=== PATIENT | female | born 1945 | race Caucasian/White ===

== ENCOUNTER 2017-07-13 15:41 | Emergency (ER) | payer MEDICARE, BC ==
[2017-07-13 16:54] LABS: Hematocrit 41 % (35-47); Mean Corpuscular HGB Conc 34 g/dl (31-36); Mean Corpuscular Hemoglobin 31 pg (27-31); Mean Corpuscular Volume 90 fL (80-97); Mean Platelet Volume 9 um3 (7.4-10.4); Red Blood Count 4.58 10^6/ul (4.0-5.4); Red Cell Distribution Width 14 % (10.5-15)
[2017-07-13 17:12] LABS: Albumin 4.2 g/dL (3.2-5.2); BUN/Creatinine Ratio 34.5 (8-20); Calcium 9.5 mg/dL (8.6-10.3); EGFR African American 86.2 (>60); Globulin 3.4 g/dL (2-4); Potassium 3.9 mmol/L (3.5-5.0); Total Bilirubin 0.3 mg/dL (0.2-1.0); Total Protein 7.6 g/dL (6.4-8.9)
--- NOTE | 2017-07-13 17:43 | ED ---
Complex/Multi-Sys Presentation - HPI Summary HPI Summary: Patient presents to the ED with multiple complaints. She initiates the conversation with comments of how she needs to move out of her apartment complex and she has not been sleeping well d/t her loud neighbors. She then discusses intermittent feeling of tingling sensation in her bilateral arms and legs which began several weeks ago without known injury. She lifted a large box recently, but denied any back pain at that time. She endorses some neck pain, but contributes this to not sleeping well and carrying extra weight. She states she is 130lbs overweight and is requesting pain management through the hospital system. She believes she may have diabetes and is currently trying to get ahold of her Dr (Dr. Langston) to evaluate for this and her high cholesterol. She has high BP on arrival and is requesting a medication change from her generic propanolol to the name brand medication. Patient denies chest pain, SOB , weakness, abdominal pain, urinary symptoms, or visual changes. She states since she has been carrying extra weight she has felt fatigued more easily. VS stable except for elevated BP on arrival at 204/90. - History Of Current Complaint Chief Complaint: EDNeckComplaint Time Seen by Provider: 07/13/17 15:56 Hx Obtained From: Patient Onset/Duration: Sudden Onset Timing: Constant Severity Currently: Mild Severity Initially: Mild Associated Signs And Symptoms: Negative: Decreased Responsiveness, Confusion, Agitation - Allergies/Home Medications Allergies/Adverse Reactions: Allergies Allergy/AdvReac Type Severity Reaction Status Date / Time Celecoxib [From Celebrex] Allergy Unknown Verified 01/23/16 14:23 Reaction Details Cephalexin [From Keflex] Allergy Unknown Verified 01/23/16 14:23 Reaction Details Cimetidine [From Tagamet HB] Allergy Rash Verified 01/23/16 14:23 Erythromycin Allergy VERY SICK Verified 01/23/16 14:23 TO STOMACH Trazodone Allergy Unknown Verified 01/23/16 14:23 Reaction Details Ciprofloxacin AdvReac Joint Pain Verified 01/23/16 14:23 PMH/Surg Hx/FS Hx/Imm Hx Previously Healthy: Yes Endocrine/Hematology History: Denies: Hx Anticoagulant Therapy Cardiovascular History: Reports: Hx Hypertension Denies: Hx Pacemaker/ICD Musculoskeletal History: Denies: Hx Osteoporosis Sensory History: Denies: Hx Hearing Aid Psychiatric History: Denies: Hx Panic Disorder, Hx of Violent Episodes Against Others - Cancer History Cancer Type, Location and Year: 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 FACIAL-NEAR NOSE; CATARACT; CARDIAC CATH W/O STENTS - Immunization History Date of Tetanus Vaccine: Unk Date of Influenza Vaccine: 2011; avoids due to getting flu-like symptoms after vaccination Hx Pertussis Vaccination: No Immunizations Up to Date: Unable to Obtain/Confirm Infectious Disease History: No Infectious Disease History: Denies: Traveled Outside the [place] in Last 30 Days - Family History Known Family History: Positive: None - Social History Occupation: Unemployed Alcohol Use: None Substance Use Type: Reports: None Smoking Status (MU): Never Smoked Tobacco Review of Systems Positive: Fatigue. Negative: Fever, Chills Negative: Photophobia, Blurred Vision ENT: Negative Cardiovascular: Negative Negative: Chest Pain Respiratory: Negative Negative: Shortness Of Breath, Cough Negative: Abdominal Pain, Diarrhea, Nausea Positive: no symptoms reported, see HPI Positive: Arthralgia - neck tenderness after lifting heavy object Neurological: Negative Negative: Weakness, Paresthesia Psychological: Normal All Other Systems Reviewed And Are Negative: Yes Physical Exam Triage Information Reviewed: Yes Vital Signs On Initial Exam: Initial Vitals Temp Pulse Resp BP Pulse Ox 98.2 F 98 18 204/90 97 07/13/17 15:48 07/13/17 15:48 07/13/17 15:48 07/13/17 15:48 07/13/17 15:48 Vital Signs Reviewed: Yes Appearance: Positive: Well-Appearing, Well-Nourished Skin: Positive: Warm, Skin Color Reflects Adequate Perfusion Head/Face: Positive: Normal Head/Face Inspection Eyes: Positive: EOMI, NANCY, Conjunctiva Clear Neck: Positive: Supple, No Lymphadenopathy Respiratory/Lung Sounds: Positive: Clear to Auscultation, Breath Sounds Present Cardiovascular: Positive: Normal, RRR, Pulses are Symmetrical in both Upper and Lower Extremities Musculoskeletal: Positive: Strength/ROM Intact Neurological: Positive: Speech Normal Psychiatric: Positive: Normal - Alexis Coma Scale Coma Scale Total: 15 Diagnostics - Vital Signs Vital Signs Temp Pulse Resp BP Pulse Ox 07/13/17 15:48 98.2 F 98 18 204/90 97 - Laboratory Lab Results: Lab Results 07/13/17 07/13/17 Range/Units 16:40 16:40 WBC 11.0 H (3.5-10.8) 10^3/ul RBC 4.58 (4.0-5.4) 10^6/ul Hgb 14.0 (12.0-16.0) g/dl Hct 41 (35-47) % MCV 90 (80-97) fL MCH 31 (27-31) pg MCHC 34 (31-36) g/dl RDW 14 (10.5-15) % Plt Count 226 (150-450) 10^3/ul MPV 9 (7.4-10.4) um3 Neut % (Auto) 59.9 (38-83) % Lymph % (Auto) 29.4 (25-47) % Putnam % (Auto) 8.6 (1-9) % Eos % (Auto) 1.3 (0-6) % Baso % (Auto) 0.8 (0-2) % Absolute Neuts (auto) 6.6 (1.5-7.7) 10^3/ul Absolute Lymphs (auto) 3.2 (1.0-4.8) 10^3/ul Absolute Monos (auto) 0.9 H (0-0.8) 10^3/ul Absolute Eos (auto) 0.1 (0-0.6) 10^3/ul Absolute Basos (auto) 0.1 (0-0.2) 10^3/ul Absolute Nucleated RBC 0 10^3/ul Nucleated RBC % 0 Sodium 135 (133-145) mmol/L Potassium 3.9 (3.5-5.0) mmol/L Chloride 104 (101-111) mmol/L Carbon Dioxide 25 (22-32) mmol/L Anion Gap 6 (2-11) mmol/L BUN 29 H (6-24) mg/dL Creatinine 0.84 (0.51-0.95) mg/dL Est GFR ( Amer) 86.2 (>60) Est GFR (Non-Af Amer) 67.0 (>60) BUN/Creatinine Ratio 34.5 H (8-20) Glucose 132 H (70-100) mg/dL Calcium 9.5 (8.6-10.3) mg/dL Total Bilirubin 0.30 (0.2-1.0) mg/dL AST 21 (13-39) U/L ALT 28 (7-52) U/L Alkaline Phosphatase 86 (34-104) U/L Total Creatine Kinase 87 (10-223) U/L Total Protein 7.6 (6.4-8.9) g/dL Albumin 4.2 (3.2-5.2) g/dL Globulin 3.4 (2-4) g/dL Albumin/Globulin Ratio 1.2 (1-3) Result Diagrams: 07/13/17 16:40 07/13/17 16:40 Lab Statement: Any lab studies that have been ordered have been reviewed, and results considered in the medical decision making process. Complex Multi-Symp Course/Dx Course Of Treatment: Discussed at [facility] the issues for which she comes to the ED for. She is encouraged to follow up with PCP as these issues should all be dealt with on an outpatient basis. She is encouraged to follow up for possible BP medications and diabetes check up. Nothing noted on blood work at this time. She is given information for weight loss program through [facility] as requested. On discharge, her BP is at 180/70 and there is no evidence of organ damage, so will defer at this time for adding of medications. Patient is made aware and she is OK with plan to follow up with Dr. Langston. - Diagnoses Differential Diagnoses/HQI/PQRI: Metabolic Abnormality, Other - insomnia, HTN Provider Diagnoses: Fatigue Discharge - Discharge Plan Condition: Stable Disposition: HOME Patient Education Materials: Chronic Hypertension (ED), Weight Management (ED) Referrals: Ant Langston MD [Primary Care Provider] - Additional Instructions: Follow up with Dr. Langston as discussed for hypertension Try relaxation techniques and speak with your rd manager. Try to rest and recover from your episodes of not sleeping well
[2017-07-13 17:47] VITALS: BP 180/60
== END 2017-07-13 18:21 | disposition home or self-care (01) ==
LOC: ED 15:41
DX: R53.83 Other fatigue (principal); M25.50 Pain in unspecified joint
CPT/HCPCS: 36415; 80053; 82550; 85025; 99282

== ENCOUNTER 2018-03-15 17:56 | Emergency (ER) | payer MEDICARE, BC ==
[2018-03-15] MEDS ORDERED: Amoxicillin PO (*) 500 MG CAP PO ONE (19:43)
[2018-03-15 20:04] VITALS: BP 189/97
--- NOTE | 2018-03-21 00:12 | ED ---
Yimi Laguna Jennifer, scribed for Landon Seals MD on 03/15/18 at 1851 . Complex/Multi-Sys Presentation - HPI Summary HPI Summary: The patient is a 73 year old female who presents with an infected tooth for about six years. The patient states she could not afford dental work and it has been giving her problems on and off. Patient additionally complains of infection and itchiness in left leg, right leg pain, and difficult vision. - History Of Current Complaint Chief Complaint: EDGeneral Hx Obtained From: Patient Onset/Duration: Still Present, Worse Since - this week when she caught a cold, Other - On and off for six years but never got it checked out because she can't afford dental care. Timing: Intermittent, Lasting: Severity Currently: Mild Severity Initially: Mild Location: Pain At: - dental pain Associated Signs And Symptoms: Positive: Other - infected tooth, infection and itchiness in left leg, right leg pain, difficult vision - Allergies/Home Medications Allergies/Adverse Reactions: Allergies Allergy/AdvReac Type Severity Reaction Status Date / Time cimetidine Allergy Unknown Verified 03/15/18 18:04 Reaction Details ciprofloxacin Allergy Joint Pain Verified 03/15/18 18:04 erythromycin base Allergy Rash Verified 03/15/18 18:04 trazodone Allergy Unknown Verified 03/15/18 18:04 Reaction Details MS Ciprofloxacin AdvReac Joint Pain Verified 01/23/16 14:23 [Ciprofloxacin] PMH/Surg Hx/FS Hx/Imm Hx Endocrine/Hematology History: Reports: Hx Diabetes - pre-diabetic Denies: Hx Anticoagulant Therapy Cardiovascular History: Reports: Hx Hypertension Denies: Hx Pacemaker/ICD Musculoskeletal History: Denies: Hx Osteoporosis Sensory History: Denies: Hx Hearing Aid Psychiatric History: Denies: Hx Panic Disorder, Hx of Violent Episodes Against Others - Cancer History Cancer Type, Location and Year: 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 FACIAL-NEAR NOSE; CATARACT; CARDIAC CATH W/O STENTS - Immunization History Date of Tetanus Vaccine: Unk Date of Influenza Vaccine: 2011; avoids due to getting flu-like symptoms after vaccination Infectious Disease History: No Infectious Disease History: Denies: Traveled Outside the [place] in Last 30 Days - Family History Known Family History: Positive: Cardiac Disease Negative: Diabetes - Social History Alcohol Use: None Substance Use Type: Reports: None Smoking Status (MU): Never Smoked Tobacco Review of Systems Eyes: Other - DIfficult vision Positive: Dental Pain Positive: Other - infection and itchiness in left leg, right leg pain All Other Systems Reviewed And Are Negative: Yes Physical Exam - Summary Physical Exam Summary: Appearance: Well-appearing, Well-nourished Skin: Warm Eyes: Normal ENT: Poor dentition, dental caries in the right upper molar, no obvious abscess. Neck: Supple, nontender Respiratory: Clear to auscultation Cardiovascular: Normal S1, S2. No murmurs. Normal distal pulses in tibial and radial bilaterally. Abdomen: Soft, nontender Musculoskeletal: Normal, Strength/ROM Intact Neurological: Normal, A&Ox3 Psychiatric: Normal General: No acute distress Triage Information Reviewed: Yes Vital Signs On Initial Exam: Initial Vitals Temp Pulse Resp BP Pulse Ox 97.6 F 78 20 185/82 97 03/15/18 18:04 03/15/18 18:04 03/15/18 18:04 03/15/18 18:04 03/15/18 18:04 Vital Signs Reviewed: Yes Diagnostics - Vital Signs Vital Signs Temp Pulse Resp BP Pulse Ox 03/15/18 18:04 97.6 F 78 20 185/82 97 - Laboratory Lab Statement: Any lab studies that have been ordered have been reviewed, and results considered in the medical decision making process. Complex Multi-Symp Course/Dx - Diagnoses Provider Diagnoses: Dental caries Discharge - Sign-Out/Discharge Documenting (check all that apply): Discharge/Admit/Transfer - Discharge Plan Condition: Improved Disposition: HOME Prescriptions: Amoxicillin PO (*) [Amoxicillin 500 MG CAP*] 500 mg PO BID #20 cap Patient Education Materials: Toothache (ED) Referrals: Ant Langston MD [Primary Care Provider] - Additional Instructions: PLEASE FINISH MEDICATIONS DIRECTED PLEASE MAKE AN APPOINTMENT FIRST THING IN THE MORNING TO BE SEEN BY YOUR DENTIST SOON POSSIBLE PLEASE RETURN TO THE EMERGENCY ROOM IF YOU HAVE ANY WORSENING OR CONCERNING SYMPTOMS PLEASE MAKE AN APPOINTMENT FIRST THING IN THE MORNING TO BE SEEN BY YOUR PRIMARY CARE DOCTOR WITHIN 1 WEEK - Billing Disposition and Condition Condition: IMPROVED Disposition: HOME The documentation as recorded by the Yimi astorga Jennifer accurately reflects the service I personally performed and the decisions made by me, Landon Seals MD.
== END 2018-03-15 19:50 | disposition home or self-care (01) ==
LOC: ED 17:56
DX: K02.9 Dental caries, unspecified (principal); Z88.3 Allergy status to other anti-infective agents; Z88.8 Allergy status to other drugs, medicaments and biological substances
CPT/HCPCS: 99282; A9270-GY

== ENCOUNTER 2018-12-14 11:43 | Emergency (ER) | payer MEDICARE, BC ==
[2018-12-14] MEDS ORDERED: NS 0.9% 1000 ML** 1,000 ML IV ONE (12:02)
--- NOTE | 2018-12-14 12:10 | ED ---
GI/ HPI - HPI Summary HPI Summary: 73 year old F brought in by ambulance to [facility] with a chief complaint of bloody stools since 09:00 today. The patient rates the pain 0/10 in severity. Symptoms aggravated by nothing. Symptoms alleviated by nothing. Patient reports lightheadedness. She additionally complains of abdominal pain that waxes and wanes, rated 2/10. Patient notes "acid reflux" a few days ago. Patient denies fever, chest pain, nausea, vomiting. Patient was seen by her OBGYN 2 weeks ago for yeast infection. She was given antibiotic cream. Since then, patient still has irritation around clitoris. She was going to make an appointment tomorrow but noticed 5-cm blood clot in bowel movement this morning. Patient has hx erosive esophagitis dx upper endoscopy, Dr. Eli in 2012. Pt is not currently on PPI or H-2 jude. Patient's abdominal surgeries include appendectomy, total hysterectomy. She thinks she had a colonoscopy but can't remember when. Colonoscopy encounter not in [facility]. Patient does not have Fhx colon CA. Vital signs while in room: HR 77 bpm, BP 220/111. Home Medications Medication Instructions Recorded Confirmed Type Aspirin [Adult Aspirin] 81 mg PO DAILY 12/14/18 12/14/18 History Betamethasone Karey 0.1% CM(NF) 1 applic TOPICAL DAILY 12/14/18 12/14/18 History [Valisone 0.1% CM(NF)] Biotin 5,000 mcg PO BID 12/14/18 12/14/18 History Calcium Carbonate/Vitamin D3 1 cap PO DAILY 12/14/18 12/14/18 History [Calcium/Vitamin D] Estradiol VAGINAL TAB(NF) [Vagifem] 10 mcg VAGINAL SEE INSTRUCTIONS 12/14/18 History Ferrous Sulfate [Iron High-Potency] 325 mg PO EVERY OTHER DAY 12/14/18 12/14/18 History Flaxseed 340 gm PO DAILY 12/14/18 12/14/18 History Labetalol HCl 100 mg PO DAILY 12/14/18 12/14/18 History Lidocaine PATCH 5%* [Lidoderm 5% 1 patch TRANSDERM DAILY PRN 12/14/18 12/14/18 History Patch*] Magnesium Oxide [Magnesium] 500 mg PO DAILY 12/14/18 12/14/18 History Melatonin/Pyridoxine HCl (B6) 1 tab PO BEDTIME 12/14/18 12/14/18 History [Melatonin] Miconazole VAG SUPP* 200 mg VAGINAL BEDTIME PRN 12/14/18 12/14/18 History Niacin 500 mg PO DAILY 12/14/18 12/14/18 History Selenium 200 mcg PO DAILY 12/14/18 12/14/18 History Triamcinolone PASTE 0.1% (NF) 1 applic TOPICAL DAILY 12/14/18 12/14/18 History [Triamcinolone 0.1% PASTE *] Zinc 50 mg PO DAILY 12/14/18 12/14/18 History diazePAM [Diazepam] 5 mg PO DAILY PRN 12/14/18 12/14/18 History diphenhydrAMINE HCl 25 mg PO DAILY PRN 12/14/18 12/14/18 History [Diphenhydramine HCl] - History of Current Complaint Chief Complaint: EDGIBleed Time Seen by Provider: 12/14/18 11:51 Stated Complaint: BLOODY STOOL Hx Obtained From: Patient, EMS Onset/Duration: Started Hours Ago - 09:00 today, Still Present Timing: Constant Severity: Moderate Current Severity: None - no abd pain at initial encounter Pain Intensity: 0 Pain Characteristics: Dull Associated Signs and Symptoms: Positive: Negative - fever, chest pain, nausea, vomiting, Blood w/Stool - nelson stool, Other: - lightheadedness, abdominal pain, "acid reflux" Aggravating Factor(s): Nothing Alleviating Factor(s): Nothing - Allergy/Home Medications Allergies/Adverse Reactions: Allergies Allergy/AdvReac Type Severity Reaction Status Date / Time cimetidine Allergy Unknown Verified 12/14/18 15:42 Reaction Details ciprofloxacin Allergy Joint Pain Verified 12/14/18 15:42 erythromycin base Allergy Rash Verified 12/14/18 15:42 trazodone Allergy Unknown Verified 12/14/18 15:42 Reaction Details Home Medications: Home Medications Aspirin [Adult Aspirin] 81 mg PO DAILY 12/14/18 [History Confirmed 12/14/18] Betamethasone Karey 0.1% CM(NF) [Valisone 0.1% CM(NF)] 1 applic TOPICAL DAILY [History Confirmed 12/14/18] Biotin 5,000 mcg PO BID 12/14/18 [History Confirmed 12/14/18] Calcium Carbonate/Vitamin D3 [Calcium/Vitamin D] 1 cap PO DAILY 12/14/18 [ History Confirmed 12/14/18] Estradiol VAGINAL TAB(NF) [Vagifem] 10 mcg VAGINAL SEE INSTRUCTIONS 12/14/18 [ History Confirmed 12/14/18] Ferrous Sulfate [Iron High-Potency] 325 mg PO EVERY OTHER DAY 12/14/18 [History Confirmed 12/14/18] Flaxseed 340 gm PO DAILY 12/14/18 [History Confirmed 12/14/18] Labetalol HCl 100 mg PO DAILY 12/14/18 [History Confirmed 12/14/18] Lidocaine PATCH 5%* [Lidoderm 5% Patch*] 1 patch TRANSDERM DAILY PRN 12/14/18 [ History Confirmed 12/14/18] Magnesium Oxide [Magnesium] 500 mg PO DAILY 12/14/18 [History Confirmed 12/14/18 ] Melatonin/Pyridoxine HCl (B6) [Melatonin] 1 tab PO BEDTIME 12/14/18 [History Confirmed 12/14/18] Miconazole VAG SUPP* 200 mg VAGINAL BEDTIME PRN 12/14/18 [History Confirmed ] Niacin 500 mg PO DAILY 12/14/18 [History Confirmed 12/14/18] Selenium 200 mcg PO DAILY 12/14/18 [History Confirmed 12/14/18] Triamcinolone PASTE 0.1% (NF) [Triamcinolone 0.1% PASTE *] 1 applic TOPICAL DAILY 12/14/18 [History Confirmed 12/14/18] Zinc 50 mg PO DAILY 12/14/18 [History Confirmed 12/14/18] diazePAM [Diazepam] 5 mg PO DAILY PRN 12/14/18 [History Confirmed 12/14/18] diphenhydrAMINE HCl [Diphenhydramine HCl] 25 mg PO DAILY PRN 12/14/18 [History Confirmed 12/14/18] PMH/Surg Hx/FS Hx/Imm Hx Previously Healthy: No Endocrine/Hematology History: Reports: Hx Diabetes Denies: Hx Anticoagulant Therapy Cardiovascular History: Reports: Hx Hypertension Denies: Hx Pacemaker/ICD GI History: Reports: Other GI Disorders - erosive esophagitis History: Reports: Other Problems/Disorders - recent treatment for " vaginal yeast infection" No vaginal bleeding Musculoskeletal History: Denies: Hx Osteoporosis Sensory History: Denies: Hx Hearing Aid Psychiatric History: Denies: Hx Panic Disorder, Hx of Violent Episodes Against Others - Cancer History Cancer Type, Location and Year: 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 FACIAL-NEAR NOSE; CATARACT; CARDIAC CATH W/O STENTS - Immunization History Date of Tetanus Vaccine: Unk Date of Influenza Vaccine: 2011; avoids due to getting flu-like symptoms after vaccination Infectious Disease History: No Infectious Disease History: Denies: Traveled Outside the [place] in Last 30 Days - Family History Known Family History: Positive: Cardiac Disease Negative: Diabetes - Social History Lives: Alone Alcohol Use: None Hx Substance Use: No Substance Use Type: Reports: None Hx Tobacco Use: No Smoking Status (MU): Never Smoked Tobacco Review of Systems Negative: Fever Negative: Chest Pain Respiratory: Negative Positive: Abdominal Pain, Other - acid reflux. Negative: Vomiting, Nausea Positive: no symptoms reported. Negative: discharge Musculoskeletal: Negative Positive: Rash - left medial thigh Neurological: Other - lightheadedness Psychological: Normal All Other Systems Reviewed And Are Negative: Yes Physical Exam - Summary Physical Exam Summary: Appearance: Ill-appearing, moderate pain distress, obese Skin: 10-cm x 12-cm rash on medial thigh that is red, has raised edges and central clearing Head: Normal Head/Face inspection, atraumatic Eyes: Conjunctiva clear ENT: Normal inspection Neck: Supple, no nodes, no JVD Respiratory: Lungs clear, normal breath sounds, no respiratory distress Cardio: RRR, No murmur, pulses normal, brisk capillary refill Abdomen: Soft, nontender. Patient has right low quadrant scar from pubis to umbilicus and a midline scar from umbilicus to pubis. Bowel sounds: Present Musculoskeletal: Strength Intact/ROM intact, no calf tenderness, no edema. Psychological: Normal Neuro: Alert, muscle tone normal, no focal deficit Rectal exam chaperoned by nurse Schreiber: Patient has small external hemorrhoids that are non-thrombosed and not bleeding. I feel some soft stool. There are no masses. This is a non-tender exam. Patient has nelson stool. Triage Information Reviewed: Yes Vital Signs On Initial Exam: Initial Vitals Temp Pulse Resp BP Pulse Ox 98.3 F 87 18 220/111 98 12/14/18 11:47 12/14/18 11:47 12/14/18 11:47 12/14/18 11:47 12/14/18 11:47 Vital Signs Reviewed: Yes Diagnostics - Vital Signs Vital Signs Temp Pulse Resp BP Pulse Ox 12/14/18 11:47 98.3 F 87 18 220/111 98 - Laboratory Result Diagrams: 12/14/18 12:15 12/14/18 12:15 Lab Statement: Any lab studies that have been ordered have been reviewed, and results considered in the medical decision making process. - Radiology CXR Radiology Interpretation Completed By: Radiologist Summary of Radiographic Findings: NO ACTIVE CARDIOPULMONARY DISEASE. ED physician has reviewed this report. - CT Abd/Pel CT Interpretation Completed By: Radiologist Summary of CT Findings: FATTY INFILTRATION OF THE LIVER. NO ACUTE CT PATHOLOGY OF THE VISUALIZED ABDOMEN OR PELVIS. ED physician has reviewed this report. - EKG 1223 Cardiac Rate: NL - 74 BPM EKG Rhythm: Sinus Rhythm ST Segment: Non-Specific Ectopy: None EKG Comparison: No Significant Change - Compared to 09/13/16 Summary of EKG Findings: Nml AV/IV CT, nml QTc, and left axis. No acute changes Re-Evaluation - Re-Evaluation First Eval Re-Evaluation Time: 13:04 Change: Unchanged Comment: Discussed transfer plan with patient who is agreeable. HR 73 BPM, BP 166/101 GIGU Course/Dx - Course Course Of Treatment: Reviewed nurses note. Patient medications reviewed this visit. Allergies noted. High blood pressure noted. Bloodwork was remarkable for glucose 178. Patient's initial H/H is 14.1/42. Stool sample is positive for blood in stool. CXR shows NO ACTIVE CARDIOPULMONARY DISEASE. CT Abd/Pel shows FATTY INFILTRATION OF THE LIVER. NO ACUTE CT PATHOLOGY OF THE VISUALIZED ABDOMEN OR PELVIS. Patient was given IV fluids in ED course. Spoke with Dr. Ji , hospitalist, who recommends transferring patient due to lack of GI coverage today. Transfer initiated at 13:56. At 14:04, spoke with Dr. Lopez, ED physician, at [facility] in [place], [place], who referred us to Dr. Alberto Mckeon, hospitalist, at [place], who agreed to accept patient at 14:14. Spoke with Shanna from [place] [facility] at 14:15 who will call back with a bed assignment for patient. Spoke with Santiago from [facility] at 14:17 who is aware of the situation. At 15:18, [facility] returned call without a bed assignment. Spoke with Nuris from [facility] at 15:32, who connected us to [facility] who said she did not have an estimate of when bed availibilty would be ready. At 15:50, [facility] was called. Spoke with Brina at 15:54 who said that it might be tough to get a bed at [facility] but said she would speak to her nursing excavating supervisor, Yesenia. At 15:59, we are waiting for someone to call us back with a bed assignment. At 16:15, [facility] called us back with a bed assignment. Patient was accepted to [facility], Room 406. Patient will be transferred to [facility] in [place], [place]. Patient is agreeable to transfer. - Diagnoses Differential Diagnoses - Female: Colitis, Diverticulosis, Enterocolitis, Esophagitis/Gastritis, Ischemic Bowel Provider Diagnoses: GI bleed, Hypertension, poor control, Rash, Hyperglycemia - Physician Notifications Discussed Care Of Patient With: Jude Ji Time Discussed With Above Provider: 13:02 Instructed by Provider To: Transfer - Dr. Ji, hospitalist, recommends transferring the patient to a facility that has GI coverage. 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 - Critical Care Time Critical Care Time: 30-74 min - 30 mins Discharge - Sign-Out/Discharge Documenting (check all that apply): Patient Departure - Transfer Patient Received Moderate/Deep Sedation with Procedure: No - Discharge Plan Condition: Stable Disposition: TRANS HIGHER LVL OF CARE FAC Referrals: Ant Langston MD [Primary Care Provider] - Additional Instructions: Return to the emergency department for new or worsening symptoms - Billing Disposition and Condition Condition: STABLE Disposition: Trans Higher Lvl of Care Fac - Attestation Statements Document Initiated by Scribe: Yes Documenting Scribe: Preethi Saenz Provider For Whom Scribe is Documenting (Include Credential): Marylu Ozuna MD Scribe Attestation: Preethi Laguna, scribed for Marylu Ozuna MD on 12/14/18 at 1634. Scribe Documentation Reviewed: Yes Provider Attestation: The documentation as recorded by the scribe, Preethi Saenz accurately reflects the service I personally performed and the decisions made by me, Marylu Ozuna MD Status of Scribe Document: Viewed
[2018-12-14 12:37] LABS: ABS Basophils 0.1 10^3/ul (0-0.2); ABS Eosinophils 0.1 10^3/ul (0-0.6); ABS Lymphocytes 2.1 10^3/ul (1.0-4.8); ABS Monocytes 0.9 10^3/ul (0-0.8); ABS Nucleated RBC 0 10^3/ul; Eosinophil % 1.1 %; Hematocrit 42 % (35-47); Hemoglobin 14.1 g/dl (12.0-16.0); Mean Corpuscular HGB Conc 34 g/dl (31-36); Mean Corpuscular Hemoglobin 30 pg (27-31); Mean Corpuscular Volume 90 fL (80-97); Mean Platelet Volume 8.4 fL (7.4-10.4); Nucleated Red Blood Cells % 0; Platelet Count 203 10^3/ul (150-450); Red Blood Count 4.65 10^6/ul (4.00-5.40); Red Cell Distribution Width 13 % (10.5-15); White Blood Count 8.1 10^3/ul (3.5-10.8)
[2018-12-14 12:48] LABS: Albumin 4.1 g/dL (3.2-5.2); Albumin/Globulin Ratio 1.3 (1-3); BUN/Creatinine Ratio 34.2 (8-20); Calcium 9.6 mg/dL (8.6-10.3); EGFR African American 95.1 (>60); EGFR Non-African American 78.6 (>60); Globulin 3.2 g/dL (2-4); Total Bilirubin 0.3 mg/dL (0.2-1.0); Total Protein 7.3 g/dL (6.4-8.9)
[2018-12-14 12:51] LABS: Activated Partial Thrombo Time 29.1 seconds (26.0-36.3); INR 0.94 (0.77-1.02)
[2018-12-14] MEDS ORDERED: Iodixanol* (CONTRAST) 320 MG/ML 100 ML SDV IV ONE (13:24)
[2018-12-14 16:51] VITALS: BP 202/95
== END 2018-12-14 16:49 | disposition short-term general hospital (02) ==
LOC: ED 11:43
DX: K92.2 Gastrointestinal hemorrhage, unspecified (principal); I10 Essential (primary) hypertension; R21 Rash and other nonspecific skin eruption; Z79.82 Long term (current) use of aspirin; E11.65 Type 2 diabetes mellitus with hyperglycemia; Z85.820 Personal history of malignant melanoma of skin; K76.0 Fatty (change of) liver, not elsewhere classified
CPT/HCPCS: 36415; 71045; 74177; 80053; 82272; 83605; 84484; 85025; 85610; 85730; 86850; 86900; 86901; 93005; 96360; 96361; 99284; Q9967

== ENCOUNTER 2018-12-22 12:11 | Emergency (ER) | payer MEDICARE, BC ==
--- NOTE | 2018-12-22 13:01 | ED ---
GI/ HPI - HPI Summary HPI Summary: Pt is a 73 y/o F presenting to the ED with a chief complaint of bleeding upon urination with associated RLQ pain. She states she has had an odor and itch for some time, which ended up being an infection that she treated with an Rx from her international marketing coordinator, but she thinks it may be coming back. She has had scans done for her lower GI which turned out fine. Today, she saw bright red blood after urinating. - History of Current Complaint Chief Complaint: EDUrogenitalProblems Time Seen by Provider: 12/22/18 12:47 Stated Complaint: GENERAL Hx Obtained From: Patient Onset/Duration: Started Days Ago, Still Present Timing: Constant, Lasting Days Severity: Moderate Current Severity: Moderate Vaginal Bleeding Description: Bright Red Pain Intensity: 4 Location of Pain: RLQ Pain Characteristics: Sharp Associated Signs and Symptoms: Positive: Hematuria, Abdominal Pain, UTI Symptoms - Allergy/Home Medications Allergies/Adverse Reactions: Allergies Allergy/AdvReac Type Severity Reaction Status Date / Time celecoxib Allergy Hives Verified 12/22/18 12:22 cephalexin [From Keflex] Allergy Unknown Verified 12/22/18 12:22 Reaction Details cimetidine Allergy Unknown Verified 12/22/18 12:22 Reaction Details ciprofloxacin Allergy Joint Pain Verified 12/22/18 12:22 erythromycin base Allergy Rash Verified 12/22/18 12:22 hydroxyzine Allergy Headache Verified 12/22/18 12:22 omeprazole Allergy Unknown Verified 12/22/18 12:22 Reaction Details trazodone Allergy Unknown Verified 12/22/18 12:22 Reaction Details Home Medications: Home Medications Ascorbic Acid/Collagen Hydr [Collagen Plus Vitamin C] 1 cap PO DAILY 12/22/18 [ History Confirmed 12/22/18] Aspirin EC TAB* [Ecotrin EC Low Dose 81 MG*] 81 mg PO DAILY 12/22/18 [History Confirmed 12/22/18] Calcium Carbonate [Calcium] 1,200 mg PO DAILY 12/22/18 [History Confirmed ] Chrm/Vineg/Bit-Orang Peel/Gr T [Apple Cider Vinegar Plus] 1 tab PO DAILY [History Confirmed 12/22/18] Diazepam TAB(*) [Valium TAB(*)] 5 mg PO BID PRN MDD 10 mg 12/22/18 [History Confirmed 12/22/18] Estradiol VAGINAL TAB(NF) [Vagifem] 10 mcg VAGINAL DAILY 12/22/18 [History Confirmed 12/22/18] Flaxseed [Flax Seeds] 2 pow PO DAILY 12/22/18 [History Confirmed 12/22/18] Folic Acid 400 mcg PO DAILY 12/22/18 [History Confirmed 12/22/18] Hydrocortisone SUPP* [Anusol HC Supp*] 25 mg OR BID PRN 12/22/18 [History Confirmed 12/22/18] Labetalol TAB* [Trandate TAB*] 100 mg PO DAILY 12/22/18 [History Confirmed 12/22] Melatonin 5 mg PO BEDTIME 12/22/18 [History Confirmed 12/22/18] Miconazole Nitrate 2 % VAGINAL DAILY 12/22/18 [History Confirmed 12/22/18] Niacinamide [Niacin] 500 mg PO DAILY 12/22/18 [History Confirmed 12/22/18] [place]-3 Fatty Acids (Nf) [Fish Oil (NF)] 1,000 mg PO DAILY 12/22/18 [History Confirmed 12/22/18] Oregano Oil [Oil of Oregano] 3,000 mg PO DAILY 12/22/18 [History Confirmed 12/22] Sennosides/Docusate Sodium [Senokot S] 2 tab PO DAILY 12/22/18 [History Confirmed 12/22/18] diPHENhydraMINE PO* [Benadryl PO 25 MG TAB*] 25 mg PO Q6H PRN 12/22/18 [History Confirmed 12/22/18] PMH/Surg Hx/FS Hx/Imm Hx Previously Healthy: Yes Endocrine/Hematology History: Reports: Hx Diabetes Denies: Hx Anticoagulant Therapy Cardiovascular History: Reports: Hx Hypertension Denies: Hx Pacemaker/ICD GI History: Reports: Other GI Disorders - erosive esophagitis History: Reports: Other Problems/Disorders - recent treatment for " vaginal yeast infection" No vaginal bleeding Musculoskeletal History: Denies: Hx Osteoporosis Sensory History: Denies: Hx Hearing Aid Psychiatric History: Denies: Hx Panic Disorder, Hx of Violent Episodes Against Others - Cancer History Cancer Type, Location and Year: 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 FACIAL-NEAR NOSE; CATARACT; CARDIAC CATH W/O STENTS - Immunization History Date of Tetanus Vaccine: Unk Date of Influenza Vaccine: 2011; avoids due to getting flu-like symptoms after vaccination Infectious Disease History: No Infectious Disease History: Denies: Traveled Outside the [place] in Last 30 Days - Family History Known Family History: Positive: Cardiac Disease Negative: Diabetes - Social History Alcohol Use: None Hx Substance Use: No Substance Use Type: Reports: None Hx Tobacco Use: No Smoking Status (MU): Never Smoked Tobacco Review of Systems Negative: Fever Positive: Abdominal Pain Positive: hematuria, other - odor, itch All Other Systems Reviewed And Are Negative: Yes Physical Exam - Summary Physical Exam Summary: : Externally and internally there is no bleeding from the vaginal area. Appearance: Well appearing, no pain distress Skin: warm, dry, reflects adequate perfusion Head/face: normal Eyes: EOMI, NANCY ENT: normal Neck: supple, non-tender Respiratory: CTA, breath sounds present Cardiovascular: RRR, pulses symmetrical Abdomen: non-tender, soft Musculoskeletal: normal, strength/ROM intact Neuro: normal, sensory motor intact, A&Ox3 Triage Information Reviewed: Yes Vital Signs On Initial Exam: Initial Vitals Temp Pulse Resp BP Pulse Ox 98.3 F 86 19 232/106 96 12/22/18 12:14 12/22/18 12:14 12/22/18 12:14 12/22/18 12:14 12/22/18 12:14 Vital Signs Reviewed: Yes Diagnostics - Vital Signs Vital Signs Temp Pulse Resp BP Pulse Ox 12/22/18 12:14 98.3 F 86 19 232/106 96 - Laboratory Result Diagrams: 12/22/18 13:22 12/22/18 13:22 Lab Statement: Any lab studies that have been ordered have been reviewed, and results considered in the medical decision making process. GIGU Course/Dx - Course Course Of Treatment: Pt is a 73 y/o F presenting to the ED with a chief complaint of bleeding upon urination with associated RLQ pain. She has had scans done for her lower GI which turned out fine. Today, she saw bright red blood after urinating. Per lab work, the pt has a UTI and will be discharged home. She is agreeable with this plan. - Diagnoses Differential Diagnoses - Female: Urinary Tract Infection Provider Diagnoses: UTI (urinary tract infection) Discharge - Sign-Out/Discharge Documenting (check all that apply): Patient Departure Patient Received Moderate/Deep Sedation with Procedure: No - Discharge Plan Condition: Stable Disposition: HOME Prescriptions: Clotrimazole 1% TOPICAL (NF) [Lotrimin 1% TOPICAL (NF)] 1 applic TOPICAL BID #2 tube Sulfamethox/Trimethoprim DS* [Bactrim DS 800/160 TAB*] 1 tab PO BID #10 tab Referrals: Ant Langston MD [Primary Care Provider] - Additional Instructions: Please follow up with your primary care provider within the next three days. Return to the emergency department with any new or worsening symptoms. - Billing Disposition and Condition Condition: STABLE Disposition: Home - Attestation Statements Document Initiated by Scribe: Yes Documenting Scribe: Dolores Villanueva Provider For Whom Scribe is Documenting (Include Credential): Harshil Albarado MD. Scribe Attestation: Dolores Laguna, jean pauled for Harshil Albarado MD. on 12/22/18 at 1433. Scribe Documentation Reviewed: Yes Provider Attestation: The documentation as recorded by the Dolores astorga accurately reflects the service I personally performed and the decisions made by Harshil fierro MD. Status of Scribe Document: Viewed
[2018-12-22 13:39] LABS: ABS Basophils 0.1 10^3/ul (0-0.2); ABS Eosinophils 0.1 10^3/ul (0-0.6); ABS Lymphocytes 2.6 10^3/ul (1.0-4.8); ABS Neutrophils 5.1 10^3/ul (1.5-7.7); ABS Nucleated RBC 0 10^3/ul; Eosinophil % 1.2 %; Hematocrit 41 % (35-47); Hemoglobin 14.1 g/dl (12.0-16.0); Lymphocyte % 29.2 %; Mean Corpuscular HGB Conc 34 g/dl (31-36); Mean Corpuscular Hemoglobin 31 pg (27-31); Mean Corpuscular Volume 90 fL (80-97); Mean Platelet Volume 8.5 fL (7.4-10.4); Nucleated Red Blood Cells % 0; Platelet Count 209 10^3/ul (150-450); Red Blood Count 4.61 10^6/ul (4.00-5.40); Red Cell Distribution Width 13 % (10.5-15); White Blood Count 8.8 10^3/ul (3.5-10.8)
[2018-12-22 13:57] LABS: Albumin 4.2 g/dL (3.2-5.2); Albumin/Globulin Ratio 1.4 (1-3); BUN/Creatinine Ratio 27.8 (8-20); Calcium 9.3 mg/dL (8.6-10.3); EGFR African American 96.6 (>60); EGFR Non-African American 79.9 (>60); Potassium 4.3 mmol/L (3.5-5.0); Total Bilirubin 0.3 mg/dL (0.2-1.0); Total Protein 7.2 g/dL (6.4-8.9)
[2018-12-22 14:02] LABS: Urine Appearance Cloudy; Urine Bacteria Absent (Absent); Urine Bilirubin Negative (Negative); Urine Blood Negative (Negative); Urine Color Yellow; Urine Glucose Negative (Negative); Urine Ketones Negative (Negative); Urine Nitrite Negative (Negative); Urine Protein Negative (Negative); Urine Red Blood Cell Trace(0-2/hpf) (Absent); Urine Specific Gravity 1.012 (1.010-1.030); Urine Squamous Epithelial Cell Present (Absent); Urine Urobilinogen Negative (Negative); Urine White Blood Cell 3+(>20/hpf) (Absent)
[2018-12-22 14:56] VITALS: BP 145/92
== END 2018-12-22 14:40 | disposition home or self-care (01) ==
LOC: ED 12:11
DX: N39.0 Urinary tract infection, site not specified (principal); R31.9 Hematuria, unspecified; R10.9 Unspecified abdominal pain; E11.9 Type 2 diabetes mellitus without complications; I10 Essential (primary) hypertension
CPT/HCPCS: 36415; 80053; 81003; 81015; 83690; 85025; 87086; 99283

== ENCOUNTER 2019-02-22 03:49 | Emergency (ER) | payer MEDICARE, BC, MEDICAID ==
[2019-02-22 04:50] LABS: ABS Basophils 0.1 10^3/ul (0-0.2); ABS Eosinophils 0.2 10^3/ul (0-0.6); ABS Lymphocytes 3.1 10^3/ul (1.0-4.8); ABS Monocytes 1.1 10^3/ul (0-0.8); ABS Neutrophils 4.3 10^3/ul (1.5-7.7); ABS Nucleated RBC 0 10^3/ul; Eosinophil % 2.3 %; Hematocrit 40 % (33-41); Hemoglobin 13.8 g/dL (12.0-16.0); Lymphocyte % 35.7 %; Mean Corpuscular HGB Conc 35 g/dL (31-36); Mean Corpuscular Hemoglobin 31 pg (27-31); Mean Corpuscular Volume 89 fL (80-97); Mean Platelet Volume 8.4 fL (7.4-10.4); Nucleated Red Blood Cells % 0.1; Platelet Count 204 10^3/uL (150-450); Red Blood Count 4.47 10^6 /uL (3.70-4.87); Red Cell Distribution Width 14 % (10.5-15); White Blood Count 8.8 10^3/uL (3.5-10.8)
--- NOTE | 2019-02-22 04:57 | ED ---
Neurological HPI - HPI Summary HPI Summary: This patient is a 74 year old F presenting to ED with a chief complaint of intermittent weakness since August 2018 after she got her tooth taken out. She reports her sx worsened this morning while walking to the bathroom where she had a near-syncopal episode. Patient describes the CC as legs started to fold up, starting to be pushed forward. Patient did not have head trauma and did not lose consciousness. Patient reports right abdominal pain described as cramping and dizziness. The patient reports that she lives alone. PMHx of DM, HTN, cardiac, disease, erosive esophagitis, basal cell carcinoma shoulder area, melanoma on face, chronic left jaw infection, hemorrhoids, appendicitis, and diverticulitis. PSHx of impacted wisdom teeth, cyst removed from ovary area, appendectomy, total hysterectomy, basal cell removal from shoulder and facial- near nose, and cardiac cath w/o stents. She does not use alcohol, smoke tobacco , or use substances. - History of Current Complaint Chief Complaint: EDWeakness Stated Complaint: NEAR SYNCOPE PER EMS Time Seen by Provider: 02/22/19 03:51 Hx Obtained From: Patient Onset/Duration: Started weeks ago - August 2018, Still Present, Worse Since - This morning Timing: Intermittent Episodes Lasting: Current Severity: None Pain Intensity: 0 Pain Scale Used: 0-10 Numeric Character: Weak, Other: - near-syncope, denies head injury and LOC Aggravating: Nothing Alleviating: Nothing Associated Signs and Symptoms: Positive: Weakness, Dizziness. Negative: Loss of Consciousness, Trauma: Recent - Allergy/Home Medications Allergies/Adverse Reactions: Allergies Allergy/AdvReac Type Severity Reaction Status Date / Time celecoxib Allergy Hives Verified 12/22/18 12:22 cephalexin [From Keflex] Allergy Unknown Verified 12/22/18 12:22 Reaction Details cimetidine Allergy Unknown Verified 12/22/18 12:22 Reaction Details ciprofloxacin Allergy Joint Pain Verified 12/22/18 12:22 erythromycin base Allergy Rash Verified 12/22/18 12:22 hydroxyzine Allergy Headache Verified 12/22/18 12:22 omeprazole Allergy Unknown Verified 12/22/18 12:22 Reaction Details trazodone Allergy Unknown Verified 12/22/18 12:22 Reaction Details PMH/Surg Hx/FS Hx/Imm Hx Endocrine/Hematology History: Reports: Hx Diabetes Denies: Hx Anticoagulant Therapy Cardiovascular History: Reports: Hx Coronary Artery Disease, Hx Hypertension Denies: Hx Pacemaker/ICD GI History: Reports: Other GI Disorders - erosive esophagitis History: Reports: Other Problems/Disorders - recent treatment for " vaginal yeast infection" No vaginal bleeding Musculoskeletal History: Denies: Hx Osteoporosis Sensory History: Denies: Hx Hearing Aid Psychiatric History: Denies: Hx Panic Disorder, Hx of Violent Episodes Against Others - Cancer History Cancer Type, Location and Year: 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 FACIAL-NEAR NOSE; CATARACT; CARDIAC CATH W/O STENTS - Immunization History Date of Tetanus Vaccine: Unk Date of Influenza Vaccine: 2011; avoids due to getting flu-like symptoms after vaccination Infectious Disease History: No Infectious Disease History: Denies: Traveled Outside the [place] in Last 30 Days - Family History Known Family History: Positive: Cardiac Disease Negative: Diabetes - Social History Alcohol Use: None Hx Substance Use: No Substance Use Type: Reports: None Hx Tobacco Use: No Smoking Status (MU): Never Smoked Tobacco Review of Systems Positive: Abdominal Pain - cramping Musculoskeletal: Other - No head trauma Neurological: Other - near-syncope; denies LOC Positive: Weakness - Legs started to fold up, falling forward All Other Systems Reviewed And Are Negative: Yes Physical Exam - Summary Physical Exam Summary: Appearance: Well appearing, no pain distress Skin: warm, dry, reflects adequate perfusion Head/face: normal Eyes: EOMI, NANCY ENT: normal Neck: supple, non-tender Respiratory: CTA, breath sounds present Cardiovascular: RRR, pulses symmetrical Abdomen: non-tender, soft Musculoskeletal: normal, strength/ROM intact Neuro: normal, sensory motor intact, A&Ox3 GCS: 15 Triage Information Reviewed: Yes Vital Signs On Initial Exam: Initial Vitals Pulse BP Pulse Ox 76 203/94 97 02/22/19 03:54 02/22/19 03:54 02/22/19 03:54 Vital Signs Reviewed: Yes Diagnostics - Vital Signs Vital Signs Temp Pulse Resp BP Pulse Ox 02/22/19 04:00 98.4 F 76 20 203/94 95 02/22/19 03:55 76 97 02/22/19 03:54 76 203/94 97 - Laboratory Result Diagrams: 02/22/19 04:38 02/22/19 04:38 Lab Statement: Any lab studies that have been ordered have been reviewed, and results considered in the medical decision making process. - Radiology CXR Radiology Interpretation Completed By: ED Physician Summary of Radiographic Findings: No acute processes. Pending official radiology interpretation. - CT CT Brain CT Interpretation Completed By: Radiologist Summary of CT Findings: No acute intracranial findings. Dr. Albarado has reviewed this radiology report. - EKG 0514 Cardiac Rate: NL - 64 BPM EKG Rhythm: Sinus Rhythm Summary of EKG Findings: No acute changes. Course/Dx - Course Assessment/Plan: This patient is a 74 year old F presenting to ED with a chief complaint of intermittent weakness since August 2018 after she got her tooth taken out. Blood work and UA obtained. EKG reveals NSR at 64 BPM and no acute changes. CXR reveals no acute processes. CT brain reveals no acute intracranial findings. Patient will be discharged home with dx of dizziness and near syncope. Patient understands and agrees with this plan. - Differential Dx Differential Diagnoses Neuro: Positive: Dysrhythmia, Intracranial Bleed, Vasovagal Reaction, Other - Dizziness, near syncope - Diagnoses Provider Diagnoses: Dizziness, Near syncope Discharge - Sign-Out/Discharge Documenting (check all that apply): Patient Departure - Discharge Patient Received Moderate/Deep Sedation with Procedure: No - Discharge Plan Condition: Stable Disposition: HOME Patient Education Materials: Near Syncope (ED), Dizziness (ED) Referrals: Ant Langston MD [Primary Care Provider] - 3 Days Additional Instructions: Follow up with your primary care provider in 3 days. RETURN TO EMERGENCY ROOM IF CHANGING OR WORSENING SYMPTOMS. - Billing Disposition and Condition Condition: STABLE Disposition: Home - Attestation Statements Document Initiated by Scribe: Yes Documenting Scribe: Kumar Lopez Provider For Whom Ben is Documenting (Include Credential): Harshil Albarado MD Scribe Attestation: Kumar Laguna, scribed for Harshil Albarado MD on 02/22/19 at 0603. Scribe Documentation Reviewed: Yes Provider Attestation: The documentation as recorded by the Kumar astorga accurately reflects the service I personally performed and the decisions made by me, Harshil Albarado MD Status of Scribe Document: Viewed
[2019-02-22 05:11] LABS: Albumin 3.8 g/dL (3.2-5.2); Albumin/Globulin Ratio 1.4 (1-3); BUN/Creatinine Ratio 28.4 (8-20); Calcium 8.9 mg/dL (8.6-10.3); EGFR African American 104.7 (>60); EGFR Non-African American 86.5 (>60); Globulin 2.8 g/dL (2-4); Potassium 3.9 mmol/L (3.5-5.0); Total Bilirubin 0.3 mg/dL (0.2-1.0); Total Protein 6.6 g/dL (6.4-8.9)
[2019-02-22 05:22] LABS: Urine Appearance Clear; Urine Bilirubin Negative (Negative); Urine Blood Negative (Negative); Urine Color Straw; Urine Glucose Negative (Negative); Urine Ketones Negative (Negative); Urine Nitrite Negative (Negative); Urine Protein Negative (Negative); Urine Urobilinogen Negative (Negative)
[2019-02-22 06:20] VITALS: BP 177/88
== END 2019-02-22 06:05 | disposition home or self-care (01) ==
LOC: ED 03:49
DX: R42 Dizziness and giddiness (principal); R55 Syncope and collapse; I10 Essential (primary) hypertension; I25.10 Atherosclerotic heart disease of native coronary artery without angina pectoris; E11.9 Type 2 diabetes mellitus without complications; Z88.3 Allergy status to other anti-infective agents; Z88.8 Allergy status to other drugs, medicaments and biological substances; Z88.5 Allergy status to narcotic agent; Z85.828 Personal history of other malignant neoplasm of skin
CPT/HCPCS: 36415; 70450; 71045; 80053; 81003; 83605; 84484; 85025; 85610; 85730; 93005; 99283

== ENCOUNTER 2019-07-25 04:17 | Emergency (ER) | payer MEDICARE, BC ==
--- NOTE | 2019-07-25 05:10 | ED ---
Abdominal Pain/Female - HPI Summary HPI Summary: This patient is a 74 year old female presenting to [facility] with a chief complaint of waxing lower abdominal pain. She states the right side hurts more than left. She states the pain radiates to her both flanks, the right side more than left. She rates her pain 10/10 in severity. She reports diarrhea. - History of Current Complaint Chief Complaint: EDAbdPain Stated Complaint: ABD PAIN PER PT Time Seen by Provider: 07/25/19 04:57 Hx Obtained From: Patient Pain Intensity: 10 Pain Scale Used: 0-10 Numeric Location: Discrete At: RLQ, Discrete At: LLQ, Flank Allergies/Adverse Reactions: Allergies Allergy/AdvReac Type Severity Reaction Status Date / Time celecoxib Allergy Hives Verified 07/25/19 04:25 cephalexin [From Keflex] Allergy Unknown Verified 07/25/19 04:25 Reaction Details cimetidine Allergy Unknown Verified 07/25/19 04:25 Reaction Details ciprofloxacin Allergy Joint Pain Verified 07/25/19 04:25 erythromycin base Allergy Rash Verified 07/25/19 04:25 hydroxyzine Allergy Headache Verified 07/25/19 04:25 omeprazole Allergy Unknown Verified 07/25/19 04:25 Reaction Details trazodone Allergy Unknown Verified 07/25/19 04:25 Reaction Details Home Medications: Home Medications NIFEdipine [Nifedipine ER] 1 tab PO DAILY 07/25/19 [History Confirmed 07/25/19] PMH/Surg Hx/FS Hx/Imm Hx Endocrine/Hematology History: Reports: Hx Diabetes Denies: Hx Anticoagulant Therapy Cardiovascular History: Reports: Hx Coronary Artery Disease, Hx Hypertension Denies: Hx Pacemaker/ICD GI History: Reports: Other GI Disorders - erosive esophagitis History: Reports: Other Problems/Disorders - recent treatment for " vaginal yeast infection" No vaginal bleeding Musculoskeletal History: Denies: Hx Osteoporosis Sensory History: Denies: Hx Hearing Aid Psychiatric History: Denies: Hx Panic Disorder, Hx of Violent Episodes Against Others - Cancer History Cancer Type, Location and Year: 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 FACIAL-NEAR NOSE; CATARACT; CARDIAC CATH W/O STENTS - Immunization History Date of Tetanus Vaccine: Unk Date of Influenza Vaccine: 2011; avoids due to getting flu-like symptoms after vaccination Infectious Disease History: No Infectious Disease History: Denies: Traveled Outside the [place] in Last 30 Days - Family History Known Family History: Positive: Cardiac Disease Negative: Diabetes - Social History Alcohol Use: None Hx Substance Use: No Substance Use Type: Reports: None Hx Tobacco Use: No Smoking Status (MU): Never Smoked Tobacco Review of Systems Positive: Abdominal Pain, Diarrhea Positive: flank pain All Other Systems Reviewed And Are Negative: Yes Physical Exam - Summary Physical Exam Summary: Appearance: Well-appearing, Well-nourished, lying in bed comfortably Skin: Warm, dry, no obvious rash Eyes: sclera anicteric, no conjunctival pallor ENT: mucous membranes moist, pharynx appears normal Neck: Supple, nontender Respiratory: Clear to auscultation, no signs of respiratory distress Cardiovascular: Normal S1, S2. No murmurs. Normal distal pulses in tibial and radial bilaterally. Abdomen: Soft, nontender, normal active bowel sounds present Musculoskeletal: Normal, Strength/ROM Intact Neurological: A&Ox3, awake and alert, mentation is normal, speech is fluent and appropriate Psychiatric: affect is normal, does not appear anxious or depressed Triage Information Reviewed: Yes Vital Signs On Initial Exam: Initial Vitals Temp Pulse Resp BP Pulse Ox 98.1 F 85 16 226/120 97 07/25/19 04:19 07/25/19 04:19 07/25/19 04:19 07/25/19 04:19 07/25/19 04:19 Vital Signs Reviewed: Yes Procedures - Sedation Patient Received Moderate/Deep Sedation with Procedure: No Diagnostics - Vital Signs Vital Signs Temp Pulse Resp BP Pulse Ox 07/25/19 04:19 98.1 F 85 16 226/120 97 - Laboratory Result Diagrams: 07/25/19 05:12 07/25/19 05:12 Lab Statement: Any lab studies that have been ordered have been reviewed, and results considered in the medical decision making process. Abdominal Pain Fem Course/Dx - Course Course Of Treatment: This patient is a 74 year old female presenting to [facility] with a chief complaint of lower abdominal pain. The patient will be signed out to Dr. Do at [address] Abd/Pelvis reading. - Diagnoses Provider Diagnoses: Abdominal pain Discharge ED - Sign-Out/Discharge Documenting (check all that apply): Sign-Out Patient Signing out patient TO: Parmjit Do - Discharge Plan Condition: Stable Disposition: HOME Prescriptions: HYDROcodone/ACETAMIN 5-325 MG* [[place] 5-325 TAB*] 1 tab PO Q6H PRN #20 tab MDD 4 PRN Reason: Pain Patient Education Materials: Abdominal Pain (ED) Referrals: Ant Langston MD [Primary Care Provider] - Additional Instructions: Follow up with your primary care provider, Dr. Langston, in 2-3 days. RETURN TO THE ED FOR ANY WORSENING OR NEW SYMPTOMS. - Billing Disposition and Condition Condition: STABLE Disposition: Home - Attestation Statements Document Initiated by Ben: Yes Documenting Tateibe: Jarrod Boogie Provider For Whom Ben is Documenting (Include Credential): Parmjit Gabriel MD Scribe Attestation: Jarrod Laguna scribed for Parmjit Gabriel MD on 07/31/19 at 0423. Scribe Documentation Reviewed: Yes Provider Attestation: The documentation as recorded by the Jarrod astorga accurately reflects the service I personally performed and the decisions made by me, Parmjit Gabriel MD Status of Scribe Document: Viewed
[2019-07-25] MEDS ORDERED: Ondansetron INJ* 2 MG/ML VIAL IV ONE (05:11)
[2019-07-25] MEDS ORDERED: NS 0.9% 1000 ML** 2,000 ML IV ONE (05:11)
[2019-07-25] MEDS ORDERED: Morphine 4 MG/ML VIAL (1 ml) 4 MG/ML VIAL IV ONE (05:11)
[2019-07-25] MEDS ORDERED: Morphine 4 MG/ML VIAL (1 ml) 4 MG/ML VIAL IV PRN (05:11)
[2019-07-25 05:20] LABS: ABS Basophils 0.1 10^3/ul (0-0.2); ABS Eosinophils 0.2 10^3/ul (0-0.6); ABS Lymphocytes 3.1 10^3/ul (1.0-4.8); ABS Monocytes 1.1 10^3/ul (0-0.8); ABS Neutrophils 5.9 10^3/ul (1.5-7.7); Eosinophil % 1.9 %; Hematocrit 41 % (35-47); Hemoglobin 14.4 g/dL (12.0-16.0); Lymphocyte % 29.9 %; Mean Corpuscular HGB Conc 35 g/dL (31-36); Mean Corpuscular Hemoglobin 31 pg (27-31); Mean Corpuscular Volume 90 fL (80-97); Mean Platelet Volume 8.5 fL (7.4-10.4); Platelet Count 179 10^3/uL (150-450); Red Blood Count 4.59 10^6 /uL (3.70-4.87); Red Cell Distribution Width 14 % (10-15); White Blood Count 10.4 10^3/uL (3.5-10.8)
[2019-07-25 05:28] LABS: Urine Appearance Clear; Urine Bilirubin Negative (Negative); Urine Blood Negative (Negative); Urine Color Straw; Urine Glucose Negative (Negative); Urine Ketones Negative (Negative); Urine Nitrite Negative (Negative); Urine Protein Negative (Negative); Urine Specific Gravity 1.009 (1.010-1.030); Urine Urobilinogen Negative (Negative)
[2019-07-25 05:39] LABS: Albumin 4.2 g/dL (3.2-5.2); Albumin/Globulin Ratio 1.4 (1-3); BUN/Creatinine Ratio 28.6 (8-20); C Reactive Protein 12.55 mg/L (<8.01); Calcium 9.4 mg/dL (8.6-10.3); EGFR African American 99.5 (>60); EGFR Non-African American 82.3 (>60); Globulin 2.9 g/dL (2-4); Total Bilirubin 0.3 mg/dL (0.2-1.0); Total Protein 7.1 g/dL (6.4-8.9)
[2019-07-25] MEDS ORDERED: Iodixanol* (CONTRAST) 320 MG/ML 100 ML SDV IV ONE (06:29)
--- NOTE | 2019-07-25 07:22 | ED ---
Progress - Progress Note Progress Note: This pt was signed out from Dr. Gabriel to Dr. Do at shift change on 07/25/[address] abdomen/pelvis. CT abdomen/pelvis, as read by radiologist IMPRESSION: The CT exam does not have an anatomic explanation for the patient's right upper quadrant pain. No calcified stone within the gallbladder. No gallbladder wall thickening or pericholecystic fluid. No distension of the pancreatic duct. No focal lesion within the liver. The right kidney is smaller than the left kidney with some thinning of the renal cortex. This may be secondary to a prior inflammatory or infectious process. No hydronephrosis or nephrolithiasis. Complex cyst located in the right kidney in which the density is approximately 54 Hounsfield units. This represents a Bosniak 2F cyst because of the density. Recommend ultrasound evaluation to determine whether this is cystic or solid. This was seen on the prior CT study of 12/14/2018 and has not changed in size or appearance. This could represent a hemorrhagic cyst. Dr. Do has reviewed this report. Course/Dx - Course Course Of Treatment: Ms. Coffman was pending CT scan when I came in in the morning. After CT she was evaluated and had some mild diffuse tenderness. CT scan was unremarkable and I discussed likely reasons for returning to the emergency department. I recommended follow-up with her PCP for further evaluation and gave her couple days of pain medication which she requested. - Diagnoses Provider Diagnoses: Abdominal pain Discharge ED - Sign-Out/Discharge Documenting (check all that apply): Patient Departure - Discharge home, Receiving Sign-Out Receiving patient FROM: Parmjit Gabriel Patient Received Moderate/Deep Sedation with Procedure: No - Discharge Plan Condition: Stable Disposition: HOME Prescriptions: HYDROcodone/ACETAMIN 5-325 MG* [[place] 5-325 TAB*] 1 tab PO Q6H PRN #20 tab MDD 4 PRN Reason: Pain Patient Education Materials: Abdominal Pain (ED) Referrals: Ant Langston MD [Primary Care Provider] - Additional Instructions: Follow up with your primary care provider, Dr. Langston, in 2-3 days. RETURN TO THE ED FOR ANY WORSENING OR NEW SYMPTOMS. - Billing Disposition and Condition Condition: STABLE Disposition: Home - Attestation Statements Document Initiated by Scribe: Yes Documenting Scribe: Jodi Burks Provider For Whom Scribe is Documenting (Include Credential): Parmjit Do MD Scribe Attestation: I, Jodi Burks, scribed for Parmjit Do MD on 07/25/19 at 1521. Scribe Documentation Reviewed: Yes Provider Attestation: The documentation as recorded by the scribe, Jodi Burks accurately reflects the service I personally performed and the decisions made by me, Parmjit Do MD Status of Scribe Document: Viewed
[2019-07-25 08:05] LABS: Urine Benzodiazepine Screen Presumptive Positive (None Detect); Urine Opiates Screen None Detected (None Detect)
[2019-07-25 08:59] VITALS: BP 175/91
== END 2019-07-25 08:47 | disposition home or self-care (01) ==
LOC: ED 04:17
DX: R10.9 Unspecified abdominal pain (principal); N28.1 Cyst of kidney, acquired; E11.9 Type 2 diabetes mellitus without complications; I25.10 Atherosclerotic heart disease of native coronary artery without angina pectoris; I10 Essential (primary) hypertension; Z85.820 Personal history of malignant melanoma of skin; Z85.89 Personal history of malignant neoplasm of other organs and systems; Z90.710 Acquired absence of both cervix and uterus; Z79.899 Other long term (current) drug therapy; Z88.1 Allergy status to other antibiotic agents; Z88.8 Allergy status to other drugs, medicaments and biological substances
CPT/HCPCS: 36415; 74177; 80053; 80307; 81003; 83605; 83690; 85025; 86140; 96361; 96374; 96375; 99283; J2270; J2405; Q9967

== ENCOUNTER 2019-12-25 06:33 | Day surgery (SDC) | payer MEDICARE, BC ==
--- NOTE | 2019-12-18 13:33 | HP ---
CC: Dr. Langston HISTORY AND PHYSICAL: DATE OF PLANNED ADMISSION AND SURGERY: 12/25/19 HISTORY OF PRESENT ILLNESS: Ms. Coffman is a 74-year-old white female, who is admitted with history of urinary tract infections, persistent suspicious bladder lesions for cystoscopy and bladder biopsies. Ms. Coffman was noted by Dr. Langston, her primary care physician, to have persistent microscopic hematuria. The patient had noted pinkish discoloration on the tissue when she wiped after voiding. The patient has voiding symptoms consistent of nocturia about almost every hour, day frequency about 4 to 5 times. She reports having slow urinary stream and feeling at times of incomplete bladder emptying. The patient had a CT of the abdomen and pelvis with intravenous contrast 1 year ago. The study showed small bilateral renal cysts, but there were no other renal abnormalities, in particular no abnormal filling defects in the collecting systems or in the ureters and no renal masses and no hydronephrosis. Past history is relevant for urethral stenosis, for which I had seen her back about 15 years ago. At that time, she had urethral dilation and her symptoms improved. The patient was worked up in my office for the microscopic hematuria and underwent a cystoscopy about 2 months ago. At that time, the study showed several hyperemic areas in the anterior bladder wall. The appearance of the lesions were either carcinoma in situ or cystitis changes. The patient then had a positive urine culture growing E. coli sensitive to Bactrim and she received a course of Bactrim. She had a follow-up cystoscopy to check on the bladder lesions that were noted and the cystoscopy continued to show 2 deeply hyperemic flat lesions in the right anterior bladder wall. The lesions again were suspicious for carcinoma in situ versus acute cystitis changes. The rest of the bladder wall showed minimal degree of hyperemia, but no similar lesions. Her urine cytologies were negative. The patient is now admitted for cystoscopy and bladder biopsies. Past history is otherwise negative. PAST MEDICAL HISTORY AND SYSTEM REVIEW: The patient has essential hypertension. She is overweight. She has history of anxiety and depression and panic disorder. She has GERD, on treatment. MEDICATIONS: She is maintained on: 1. Calcium supplements. 2. Vitamin D. 3. Estradiol 10 mcg vaginal tablet. 4. Pepcid 40 mg daily. 5. Folic acid 400 mcg daily. 6. Niacin 500 mg daily. 7. For her hypertension, she is on Procardia 30 mg daily. 8. She takes trazodone for the anxiety and depression. 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 She reports being allergic to KEFLEX, but she does not know the reaction. She reports that ERYTHROMYCIN and DOXYCYCLINE give her a GI upset. She is also allergic to CELEBREX. FAMILY HISTORY: Ischemic heart disease. Negative otherwise. SOCIAL HISTORY: She is a nonsmoker. She denies the alcohol and recreational drug intake. MENTAL HEALTH: Relevant for anxiety and for depression. PHYSICAL EXAMINATION GENERAL: She is an overweight white female, who looks her age. VITAL SIGNS: Blood pressure 130/80, pulse of 74. LUNGS: Clear. HEART: Regular and rhythmic. No murmurs. ABDOMEN: Soft. No masses, no tenderness, and no CVA tenderness. PELVIC: Examination done at the time of the cystoscopy showed no pelvic masses. IMPRESSION: Microscopic hematuria, history of urinary tract infections and persistent suspicious hyperemic lesions involving the right anterior bladder wall with normal CT of the abdomen and pelvis with IV contrast 1 year ago. PLAN: Cystoscopy and biopsy of the bladder lesions. I discussed the above plans with the patient. All her questions were answered. [id number]/[facility] #: [id number] [place]
[~2019-12-25 06:33] MED LIST: Acetaminophen TAB* 325 MG PO ONE; Buffered Lidocaine 1% SYRIN* 1 ML/SYRINGE INTRADERM ONE; Lactated Ringers 1000 ML Bag* 1,000 ML IV SCH
[2019-12-25] MEDS ORDERED: oxyCODONE TAB* 5 MG TAB PO PRN (06:42)
[2019-12-25] MEDS ORDERED: HYDROmorphone INJ1* 1 MG/ML SYRINGE IV PRN (06:42)
[2019-12-25] MEDS ORDERED: PROCHLORPERAZINE INJ 5 MG/ML 2 ML VIAL IV PRN (06:42)
[2019-12-25] MEDS ORDERED: Naloxone* 0.4 MG/ML 1 ML VIAL IV PRN (06:42)
[2019-12-25] MEDS ORDERED: cefTRIAXone(*) 1 GM ADVAN/BAG ONE (07:41)
[2019-12-25] MEDS ORDERED: Buffered Lidocaine 1% SYRIN* 1 ML/SYRINGE INTRADERM ONE ×2 (07:42→08:13)
[2019-12-25] MEDS ORDERED: Acetaminophen TAB* 325 MG ONE (08:01)
[2019-12-25] MEDS ORDERED: Midazolam* 1 MG/ML 2 ML VIAL (2 MG) ONE (08:12)
[2019-12-25] MEDS ORDERED: fentaNYL* 50 MCG/ML 2 ML VIAL (100 MCG VIAL) ONE (08:12)
[2019-12-25] MEDS ORDERED: Propofol* 500 MG/50 ML BTL ONE (08:24)
[2019-12-25] MEDS ORDERED: Oxybutynin TAB* 5 MG ONE (09:19)
[2019-12-25 11:11] VITALS: BP 166/82
--- NOTE | 2019-12-25 13:57 | OP ---
CC: Dr. Langston OPERATIVE REPORT: DATE OF OPERATION: 12/25/19 DATE OF : 49 SURGEON: Kevin Chavarria MD ANESTHESIOLOGIST: Dr. Marti. ANESTHESIA: IV sedation with MAC. PRE-OP DIAGNOSIS: Suspicious bladder lesions, anterior lateral wall. POST-OP DIAGNOSES: 1. Suspicious bladder lesions, right anterior bladder wall. 2. Pending pathology. OPERATIVE PROCEDURE: 1. Cystoscopy. 2. Excisional biopsies and fulguration of 2 anterior bladder wall lesions. INDICATIONS FOR PROCEDURE: Ms. Coffman is a 74-year-old white female who was worked up because of persistent microscopic hematuria and who had a normal CT urogram 1 year ago. Office Cystoscopy showed 2 flat hyperemic lesions, each measuring about 1 cm, located in the right anterior lateral bladder wall. The patient was treated with a course of antibiotics and on followup cystoscopy, the lesions persisted. Because of this finding, the patient is admitted for excisional biopsies and fulguration. PATHOLOGY AT CYSTOSCOPY: There were changes of squamous metaplasia and cystitis glandularis involving the posterior bladder neck and trigone. The ureteral orifices looked normal. There were [id number] bladder trabeculations. There were 2 flat hyperemic lesions located in the right anterior bladder wall. Each lesion measured about 1 cm in size. The appearance was that of either carcinoma in situ or inflammatory changes of the bladder. The rest of the bladder wall looked normal. There were no other lesions seen. No calculi or diverticula were noted. DESCRIPTION OF PROCEDURE: With the patient in the dorsal lithotomy position and under intravenous sedation and anesthesia monitoring, the patient was prepped and draped for a cystoscopy. Cystoscopy was performed. The bladder was carefully inspected and the above findings were noted. Using the rigid biopsy forceps, the two above described lesions were biopsied. Care was taken to include muscle, but not to cause a bladder perforation. The sites of the biopsies were thoroughly fulgurated with Bugbee electrode achieving very good hemostasis. A final inspection showed good hemostasis, no residual lesions seen. There was no evidence of bladder perforation. The cystoscope was removed. A 16-Italian Schultz catheter was passed inside the bladder and the balloon inflated with 10 cc of water. The patient tolerated the procedure well and left the operating room in good condition. The plan is to observe the patient in the PACU. If the urine remains clear and she is doing fine, the Schultz catheter will be removed. Instructions were given for followup care. The decision on additional treatment will depend upon the pathology report. [id number]/[facility] #: [id number] [place]
== END 2019-12-25 11:07 | disposition home or self-care (01) ==
LOC: OR 06:33
PROVIDERS: ATTEND Urology
DX: N32.89 Other specified disorders of bladder (principal); Z87.440 Personal history of urinary (tract) infections; R31.29 Other microscopic hematuria; F41.8 Other specified anxiety disorders; F41.0 Panic disorder [episodic paroxysmal anxiety]; K21.9 Gastro-esophageal reflux disease without esophagitis; E66.9 Obesity, unspecified
CPT/HCPCS: 88305; A9270-GY; J0696; J2250; J2704; J3010